=== PATIENT | female | born 1995 | race Caucasian/White ===

== ENCOUNTER 2022-04-01 08:16 | Emergency (ER) | payer OTHER ==
[~2022-04-01] VITALS: Ht 162.6 cm; Wt 110.8 kg
[2022-04-01] MEDS ORDERED: TIZANIDINE HCL4 M1 PO (08:31)
[2022-04-01] MEDS ORDERED: HORIZANT600 MG PO (08:31)
[2022-04-01] MEDS ORDERED: CLEOCIN HCL300 MG PO (09:09)
--- OUTSIDE RECORDS SUMMARY | 2022-04-01 10:32 | XMS ---
PreManage Notification: DOROTHEA HUTSON Security Manager Zone Events No recent Security Events currently on file [facility] There are no care providers on record at this time. Trish has no Care Guidelines for this patient. Joshua VISIT COUNT (12 MO.) 1 [facility] TOTAL 1 NOTE: Visits indicate total known visits. ED/C VISIT TRACKING (12 MO.) 04/01/2022 08:17 [facility] [place] TYPE: Emergency COMPLAINT: - SKIN PROBLEM INPATIENT VISIT TRACKING (12 MO.) No inpatient visits to display in this time frame [email or web address]
== END 2022-04-01 09:17 | disposition home or self-care (01) ==
LOC: ED 08:16
DX: N73.2 Unspecified parametritis and pelvic cellulitis (principal); J45.909 Unspecified asthma, uncomplicated; Z79.899 Other long term (current) drug therapy
CPT/HCPCS: 99283

== ENCOUNTER 2022-12-06 16:22 | Emergency (ER) | payer OTHER ==
[~2022-12-06] VITALS: Ht 162.6 cm; Wt 109.8 kg
[~2022-12-06 16:22] MED LIST: CEPHALEXIN500 M1 PO; CLEOCIN HCL300 MG PO; HORIZANT600 MG PO; TIZANIDINE HCL4 M1 PO
--- OUTSIDE RECORDS SUMMARY | 2022-12-06 16:26 | XMS ---
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 Joshua VISIT COUNT (12 MO.) [address] [place] [address] TOTAL 3 NOTE: Visits indicate total known visits. 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
[2022-12-06] MEDS ORDERED: DOXYCYCLINE HY100 MG PO (22:15)
[2022-12-06 22:26] VITALS: BP 134/99
== END 2022-12-06 22:26 | disposition home or self-care (01) ==
LOC: ED 16:22
DX: L02.01 Cutaneous abscess of face (principal)
CPT/HCPCS: 99283